=== PATIENT | female | born 1940 | race Caucasian/White ===

== ENCOUNTER 2020-10-11 19:45 | Emergency (ER) | payer OTHER ==
[2020-10-11] MEDS ORDERED: DOXYCYCLINE HY100 MG PO (22:28)
== END 2020-10-11 22:45 | disposition home or self-care (01) ==
LOC: FER 19:45
DX: S90.852A Superficial foreign body, left foot, initial encounter (principal); W45.8XXA Other foreign body or object entering through skin, initial encounter; Y92.009 Unspecified place in unspecified non-institutional (private) residence as the place of occurrence of the external cause; Z23 Encounter for immunization
CPT/HCPCS: 73630; 90471; 90715

== ENCOUNTER 2021-07-03 19:53 | Emergency (ER) | payer OTHER ==
[~2021-07-03 19:53] MED LIST: DOXYCYCLINE HY100 MG PO
[2021-07-03 22:03] LABS: BUN/CREAT RATIO (CALC) 35.3 RATIO; CREATININE 0.85 mg/dL (0.51-0.95); POTASSIUM 3.6 mmol/L (3.5-5.1)
[2021-07-03] MEDS ORDERED: ZESTRIL5 MG PO (23:05)
== END 2021-07-03 23:24 | disposition home or self-care (01) ==
LOC: FER 19:53
PROVIDERS: Emergency Medicine
DX: I10 Essential (primary) hypertension (principal)
CPT/HCPCS: 36415; 71045; 80048; 84484; 93005